=== PATIENT | female | born 1995 | race Caucasian/White ===

== ENCOUNTER 2023-08-23 06:56 | Emergency (ER) | payer MEDICAID ==
[2023-08-23] MEDS ORDERED: Zofran 4 MG/2 ML VIAL IV ONE (07:19)
[2023-08-23] MEDS ORDERED: Sodium Chloride 0.9% 1000 ML 1,000 ML IV STA (07:19)
[2023-08-23 07:21] VITALS: TEMP 96.8
[2023-08-23] MEDS ORDERED: Zofran 4 MG/2 ML VIAL ONE (07:35)
[2023-08-23] MEDS ORDERED: Sodium Chloride 0.9% 1000 ML 1,000 ML ONE (07:35)
[2023-08-23] MEDS ORDERED: Hydromorphone 1 mg/ml Injection IV ONE (07:36)
[2023-08-23] MEDS ORDERED: Hydromorphone 1 mg/ml Injection ONE (07:37)
[2023-08-23 07:42] LABS: Absolute Neutrophil Ct (ANC) 4.29 x10^3/uL (1.4-6.9); BASOPHIL % 0.9 % (0.0-0.4); Basophil (Absolute #) 0.06 x10^3/uL (0-0.4); Eosinophil % 1.2 % (0.00-5.0); Eosinophil (Absolute #) 0.08 x10^3/uL (0-0.5); Hematocrit 42.3 % (35-47); Hemoglobin 13.6 g/dL (12.0-16.0); IMMATURE GRAN # 0.03 x10^3u/L (0.00-0.03); IMMATURE GRAN % 0.4 % (0.00-0.4); Lymphocyte (Absolute #) 2.03 x10^3/uL (1.0-4.6); Lymphocytes % 30.1 % (24.0-44.0); Mean Cell Volume 88.9 fL (78-100); Mean Corpuscular Hemoglobin 28.6 pg (26-32); Mean Corpuscular Hgb Concent. 32.2 g/dL (32-36); Mean Platelet Volume 9.9 fL (7.5-11.0); Monocyte (Absolute #) 0.25 x10^3/uL (0.0-1.3); Monocytes % 3.7 % (0.0-12.0); Neutrophil % 63.7 % (36.0-66.0); Platelet Count 333 x10^3/uL (150-450); Red Blood Count 4.76 x10^6/uL (4.1-5.4); Red Cell Distribution Width 12.7 % (11.5-14.0); White Blood Count 6.7 x10^3/uL (4.0-10.5)
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
[2023-08-23 07:55] LABS: INR 0.96 (0.8-3.0); PROTIME 10.5 SECONDS (9.4-12.5)
[2023-08-23 08:06] LABS: ALBUMIN 4.9 g/dL (3.5-5.0); ANION GAP 16.1 MEQ/L (5-15); BILIRUBIN,TOTAL 0.4 mg/dL (0.2-1.3); Calcium 9.6 mg/dL (8.4-10.2); Creatinine 1 1.16 mg/dL (0.52-1.04); EST GLOMERULAR FILTRATION RATE 66.3 ML/MIN; Potassium 3.8 mmol/L (3.5-5.1); Total Protein 8.1 g/dL (6.3-8.2)
[2023-08-23 08:59] LABS: HCG URINE TEST NEGATIVE (NEGATIVE)
[2023-08-23 09:22] LABS: Appearance Turbid (Clear); Bacteria Many /HPF (None Seen); Bilirubin Negative (Negative); Blood NHT (Negative); Epithelial Cells Moderate /HPF (None Seen); Glucose, Urine Negative (Negative); Hyaline Casts NONE SEEN /LPF (0-2); Ketones Negative (Negative); Leukocyte Esterase Moderate (Negative); Nitrite Negative (Negative); Ph 6.5 (4.6-8.0); Protein,Urine Dip Negative (Negative); Urobilinogen 0.2 mg/dL (0.2)
[2023-08-23 09:29] LABS: ADD URINE CULTURE? YES (NO)
--- NOTE | 2023-08-23 10:21 | XRAY ---
Indication: Right abdomen pain and vomiting. Multiple contiguous axial images obtained through the abdomen and pelvis using 80 cc Isovue 370 contrast. Comparison: None Lung bases clear. Heart not enlarged. Noncontrasted stomach and bowel loops appear nonobstructed with normal-appearing appendix. Mildly distended gallbladder with vague 1.6 cm gallstone. Query gallbladder wall thickening. Both kidneys enhance with normal left renal excretion. No right renal excretion concerning for obstructive uropathy. Right kidney is mildly hydronephrotic. Right ureter is also prominent up to 8-9 mm along its course without obvious distal ureteral calculus on this contrast exam. Incidental 1.9 cm right lower pole renal cyst. Remaining liver, pancreas, spleen, adrenal glands, bladder, uterus, and aorta are normal in CT appearance and attenuation. No pathologic retroperitoneal lymphadenopathy. Osseous structures intact. Impression: 1. Right hydronephrosis, right hydroureter, and no excretion on delayed imaging concerning for obstructive uropathy. No obvious calculus on this contrasted exam. 2. Distended gallbladder with gallstone. Query abnormal gallbladder wall thickening. Sonogram may yield further information. 3. Incidental right renal cyst.
--- NOTE | 2023-08-23 12:19 | XRAY ---
Indication: Pain. Stones. Two-dimensional abdominal sonogram performed. Comparison: None Visualized liver, pancreas, and spleen are homogeneous in echogenicity. No organomegaly or free fluid. Visualized aorta and IVC are normal in course and caliber. Gallbladder demonstrate multiple small gallstones, largest 1.5 cm. Gallbladder wall thickening measuring 3.2 mm. No pericholecystic fluid. Common bile duct measures 2.8 mm. No intrahepatic biliary distention. Right kidney measures 11.4 x 4.6 x 5.1 cm with mild hydronephrosis. Also CT proven 1.9 cm right lower pole cortical cyst. Left kidney demonstrates 4 mm calculus without hydronephrosis. Normally distended urinary bladder grossly unremarkable. Normal left ureteral jet. Right ureteral jet not seen within the allotted exam time. Rumper questions 4 mm right UVJ calculus. Impression: 1. Cholelithiasis with abnormal wall thickening. Rule out chronic cholecystitis. 2. Mild right hydronephrosis. Query tiny right UVJ calculus. 3. Incidental right renal cyst and nonobstructing left renal micro-calculus.
[2023-08-23 13:08] VITALS: BP 108/62; PULSE 76; RESP 21; O2SAT 99
== END 2023-08-23 13:25 | disposition home or self-care (01) ==
LOC: ED 06:56
DX: N13.2 Hydronephrosis with renal and ureteral calculous obstruction (principal); K80.10 Calculus of gallbladder with chronic cholecystitis without obstruction; R10.31 Right lower quadrant pain; R11.2 Nausea with vomiting, unspecified; Z79.891 Long term (current) use of opiate analgesic; Z79.899 Other long term (current) drug therapy
CPT/HCPCS: 36415; 74177; 76700; 80053; 81001; 81025; 83605; 83690; 85025; 85610; 87086; 96360; 96374; 96375; 99284; J1170; J2405